=== PATIENT | male | born 1960 | race Caucasian/White ===

== ENCOUNTER 2016-09-30 12:44 | Emergency (ER) | payer BC, OTHER ==
[2016-09-30] MEDS ORDERED: KETOROLAC 30 MG/ML VIAL (J1885) As Ordered ONE (13:51)
[2016-09-30] MEDS ORDERED: METHOCARBAMOL 1,000 MG/10 ML VIAL (J2800) As Ordered ONE (13:51)
--- NOTE | 2016-09-30 14:32 | REP ---
CT CERVICAL SPINE WITHOUT CONTRAST: 09/30/2016 COMPARISON: 08/25/2016, CT and MRI. CLINICAL HISTORY: Trauma. Neck pain. Known chronic degenerative disc disease, prior injury and surgery in 2011. TECHNIQUE: Axial soft-tissue and bone window settings with coronal and sagittal reconstructions provided. FINDINGS: The patient is status post anterior cervical discectomy and fusion with plate and screw fixation from C4 through C6. Incorporation of disc fusion material at C4-5 and C5-6. There is no hardware failure. There is loss of the normal cervical lordosis and this is unchanged. Disc space heights at C2-3 and C3-4 are intact. There is slight narrowing at C6-7. Anterior osteophytes at C6-7. The dens shows normal relationship to the anterior arch and lateral masses of C1 and is intact. Craniocervical junction also intact. At C2-3 there is no central canal stenosis. Uncinate spur on the left without spinal stenosis. At C3-4, there is also mild diffuse disc bulge with slight narrowing of the AP canal diameter to about 9 mm. Disc bulge and uncinate spurring noted bilaterally with the foramina adequate right, borderline left. At C4-5, there is bony hypertrophic change and some mild central canal stenosis. Uncinate spurring and facet arthropathy are noted with the foramina mildly stenotic bilaterally. At C5-6, there is posterior osteophytic spurring and associated disc bulge. This is also contributing to some central canal stenosis which is mild. Neural foramina are marginally adequate despite uncinate spurring. At C6-7, I do not see significant disc bulge. The foramina are adequate. At C7-T1, there is some facet hypertrophic change and mild disc bulge but no definite central canal stenosis. Foramina adequate on the right and marginally adequate on the left. The upper thoracic levels show some degenerative disc changes. Posterior elements show the spinous processes, lamina, pedicles, transverse processes, transverse foramina and facets without fractures. There is hypertrophic facet change at multiple levels. IMPRESSION: 1. Status post anterior cervical discectomy and fusion from C4 through C6 with graft incorporation and solid fusion at those two levels. No hardware failure. 2. Degenerative disc changes at most other levels and there is foraminal encroachment or only marginally adequate foramina at multiple levels from uncinate and facet spurs. All of this unchanged from the previous study. I do not see acute compression deformity, malalignment or destructive lesion. Signed by Jimmie Oswald MD 09/30/2016 05:07 P
--- NOTE | 2016-09-30 14:41 | REP ---
CT LUMBAR SPINE WITHOUT CONTRAST: 09/30/2016 COMPARISON: MRI lumbar spine 07/09/2016, x-ray 02/14/2006. CLINICAL HISTORY: Trauma, back pain. Technique axial images with coronal and sagittal bone reconstructions were provided. FINDINGS: The normal lordosis is slightly reduced. There is disc space narrowing and vacuum phenomenon at L4-5 and L5-S1. The other lumbar levels are intact. There is disc space narrowing and vacuum phenomenon at T12-L1. Anterior osteophytes from T11-12 through L5-S1 greatest at L4-5. There is no compression deformity of destructive lesion. There is a Schmorl's node at the anterior aspect inferior endplate of T12. At T11-12, there is a posterior broad-based disc bulge and small osteophytes causing some degree of central canal stenosis. Mild foramina appear adequate. At T12-L1, also a small disc bulge with some facet arthropathy. AP canal diameter about 11 mm intact and no foraminal encroachment. Intact 11th and 12th posterior ribs. At L1-2, no significant disc bulge or herniation and no spinal or foraminal stenosis. At L2-3, there is mild broad-based disc bulge. Some ligamentum flavum and facet hypertrophy combining to cause some mild central canal stenosis however the foramina are marginally adequate on the right and adequate on the left. At L3-4, there is a broad-based disc bulge and some ligamentum flavum with facet hypertrophy. This combines to cause mild central canal stenosis. Foramina are marginally adequate. At L4-L5, posterior osteophytic ridging and disc bulge with ligamentum flavum and facet hypertrophy noted. This causes spinal stenosis with some lateral recess stenosis. Marginal osteophytes and facet arthritis contribute with disc bulge to the stenosis of left greater than right foramen. At L5-S1, there is broad-based disc bulge and posterior calcification within the disc consistent with hard disc. Cross-sectional area of the canal was adequate. There is foraminal encroachment bilaterally due to combined factors, left greater than right. IMPRESSION: 1. No compression deformity of the vertebral bodies or malalignment. There is facet arthritis at multiple levels and the disc space narrowing at L4-5, L5-S1 and T12-L1 is notable, however, all of these findings are unchanged from the prior study. No acute bony finding. Central canal stenosis at the multiple levels and foraminal encroachment due to combined factors as on previous MRI in June. No new finding. Signed by Jimmie Oswald MD 09/30/2016 05:08 P
--- NOTE | 2016-09-30 15:15 | EDDOCDS ---
Nurse's Notes [facility] Name: Yfn Ramsey Age: 56 yrs Sex: Male : 1960 Arrival Date: 09/30/2016 Time: 12:44 Bed TR7 Private MD: Brian Anaya P. Diagnosis: Contusion of lower back and pelvis;Strain of muscle, fascia and tendon at neck level;Contusion of other part of head Presentation: 09/30 12:56 Presenting complaint: Patient states: slipped and fell at work. Landed on back and jo3 struck head. Suicide/Homicide risk assessment- the patient denies having any suicidal and/or homicidal ideations and does not present with any other emotional, behavioral or mental health complaints. Status: Patient is not a housetrailer servicer or dependent. Transition of care: patient was not received from another setting of care. 12:56 Method Of Arrival: Walkin/Carried/Asstd jo3 13:10 Adult Sepsis Screening: The patient does not have new or worsening altered mentation. ck1 Patient's respiratory rate is less than 22. Systolic blood pressure is greater than 100. Patient has a qSOFA score of 0- Negative Sepsis Screen. 13:10 Acuity: RUFUS Level 3 ck1 Triage Assessment: 12:59 General: Appears uncomfortable. Pain: Pain currently is 9 out of 10 on a pain scale. jo3 HIV screening NA for this visit Offered previously. Neurological: Level of Consciousness is awake, alert, Oriented to person, place, time. Historical: - Allergies: VANCOMYCIN AND DERIVATIVES; - Home Meds: 1. gabapentin 300 mg Oral tab twice a day 2. losartan 25 mg oral tab 1 tab once daily - PMHx: Hypertension; Chronic Back pain; neck pain; - PSHx: Anterior Cervical Discectomy; right knee; left carpal tunnel; - Social history: Smoking status: Patient states former smoker of tobacco. No barriers to communication noted, The patient speaks fluent Turkish, Speaks appropriately for age. - Family history: Not pertinent. - : The pt / caregiver states he / she is not on anticoagulants. Home medication list is obtained from the patient. - Exposure Risk Screening:: None identified. Screenin:17 Screening information is obtained from the patient. Fall risk: No risks identified. mk4 Assistance ADL's: requires no assistance with activities of daily living. Abuse/DV Screen: The patient / caregiver reports he/she is: not in a situation that causes fear, pain or injury. Nutritional screening: No deficits noted. home support is adequate. 15:04 Advance Directives: Currently, there is no health care proxy. There is no active DNR mk4 order. There is no living will. There is no Power of Political Reporter. Advance directive information has not previously been placed in an [facility] medical record. Further advance directive information is declined. Assessment: 13:17 General: Appears uncomfortable. Pain: Location: back of head, neck left hip and mk4 shooting down left leg. Neurological: Level of Consciousness is awake, alert. Neurological: Denies LOC. Respiratory: Airway is patent Respiratory effort is even, unlabored, Respiratory pattern is regular. Derm: Skin is intact, is healthy with good turgor. Musculoskeletal: cervical spine is tender. Circulation, motion, and sensation intact Capillary refill < 3 seconds in left toes No deformity noted. 13:21 General: cervical collar applied for c/o neck pain and heard a "crack". mk4 15:04 General: Appears in no apparent distress, comfortable, Behavior is cooperative. Pain: mk4 Location: left lower back and left leg. Respiratory: Airway is patent Respiratory effort is even, unlabored, Respiratory pattern is regular. 15:07 General: Appears in no apparent distress, comfortable, Behavior is cooperative. Pain: mk4 Pain currently is 4 out of 10 on a pain scale. Neurological: Level of Consciousness is awake, alert. Respiratory: Airway is patent Respiratory effort is even, unlabored, Respiratory pattern is regular. Derm: Skin is intact, is healthy with good turgor. Vital Signs: 12:46 BP 152 / 78 RA Sitting (auto/lg); Pulse 80; Resp 18; Temp 97.6(O); Pulse Ox 94% ; jrd Weight 133.81 kg (R); Height 5 ft. 9 in. (175.26 cm); Pain 9/10; 15:04 BP 149 / 84; Pulse 72; Resp 18; Temp 98; Pulse Ox 98% on R/A; Pain 3/10; mk4 12:46 Body Mass Index 43.56 (133.81 kg, 175.26 cm) [facility] Vitals: 12:46 Log In Time: September 30, 2016 at 12:30. jrd ED Course: 12:46 Patient visited by Fede Dobbins PCA. jrd 12:46 Brian Anaya is Private Physician. jrd 12:46 Patient moved to Waiting jrd 12:48 Patient visited by Fede Dobbins PCA. jrd 12:48 Patient moved to Pre RCE jrd 13:00 Patient visited by Lisa Gastelum RN. jo3 13:08 Patient moved to Triage 1 ct3 13:10 Patient moved to I mk4 13:10 Triage Initiated ck1 13:17 The patient / caregiver is instructed regarding the plan of care and ED course. mk4 13:22 Chava Potter PA is PHCP. btw 13:22 Marci Paul MD is Attending Physician. btw 13:22 Patient visited by Chava Potter PA. btw 14:01 Patient visited by Lindsey Chavarria RN. mk4 14:30 Lila cervical collar applied and checked by provider. mk4 14:49 Brian Anaya is Referral Physician. btw 14:56 CT Spine,Cervical W/o Contrast Returned. EDMS 14:56 CT Spine, Lumbar W/o Contrast Returned. EDMS 15:04 Patient moved to TR7 mk4 15:04 No IV's were initiated during this patient's visit. No procedures done that require mk4 assistance. Administered Medications: 14:02 Drug: ketorolac 30 mg [ketorolac 30 mg/mL (1 mL) injection solution (1 mL)] Route: IM; mk4 Site: right gluteus; 15:08 Follow up: Response: Pain is decreased mk4 14:02 Drug: Robaxin 250 mg [Robaxin 100 mg/mL injection solution (2.5 mL)] Route: IM; Site: mk4 right gluteus; 15:08 Follow up: Response: Pain is decreased mk4 Order Results: Radiology Order: CT Spine,Cervical W/o Contrast Test: CT Spine,Cervical W/o Contrast REASON FOR EXAMINATION: Trauma; CT CERVICAL SPINE WITHOUT CONTRAST: 09/30/2016; ; COMPARISON: 08/25/2016, CT and MRI.; ; CLINICAL HISTORY: Trauma. Neck pain. Known chronic degenerative disc disease,; prior injury and surgery in 2011.; ; TECHNIQUE: Axial soft-tissue and bone window settings with coronal and sagittal; reconstructions provided.; ; FINDINGS: The patient is status post anterior cervical discectomy and fusion; with plate and screw fixation from C4 through C6. Incorporation of disc fusion; material at C4-5 and C5-6. There is no hardware failure. There is loss of the; normal cervical lordosis and this is unchanged. Disc space heights at C2-3 and; C3-4 are intact. There is slight narrowing at C6-7. Anterior osteophytes at; C6-7. The dens shows normal relationship to the anterior arch and lateral masses; of C1 and is intact. Craniocervical junction also intact. At C2-3 there is no; central canal stenosis. Uncinate spur on the left without spinal stenosis.; ; At C3-4, there is also mild diffuse disc bulge with slight narrowing of the AP; canal diameter to about 9 mm. Disc bulge and uncinate spurring noted bilaterally; with the foramina adequate right, borderline left.; ; At C4-5, there is bony hypertrophic change and some mild central canal stenosis.; Uncinate spurring and facet arthropathy are noted with the foramina mildly; stenotic bilaterally.; ; At C5-6, there is posterior osteophytic spurring and associated disc bulge. This; is also contributing to some central canal stenosis which is mild. Neural; foramina are marginally adequate despite uncinate spurring.; ; At C6-7, I do not see significant disc bulge. The foramina are adequate.; ; At C7-T1, there is some facet hypertrophic change and mild disc bulge but no; definite central canal stenosis. Foramina adequate on the right and marginally; adequate on the left.; ; The upper thoracic levels show some degenerative disc changes. Posterior; elements show the spinous processes, lamina, pedicles, transverse processes,; transverse foramina and facets without fractures. There is hypertrophic facet; change at multiple levels.; ; IMPRESSION:; 1. Status post anterior cervical discectomy and fusion from C4 through C6 with; graft incorporation and solid fusion at those two levels. No hardware failure.; ; 2. Degenerative disc changes at most other levels and there is foraminal; encroachment or only marginally adequate foramina at multiple levels from; uncinate and facet spurs. All of this unchanged from the previous study. I do; not see acute compression deformity, malalignment or destructive lesion.; ; ; ; ; Unreviewed; Radiology Order: CT Spine, Lumbar W/o Contrast Test: CT Spine, Lumbar W/o Contrast REASON FOR EXAMINATION: Trauma; CT LUMBAR SPINE WITHOUT CONTRAST: 09/30/2016; ; COMPARISON: MRI lumbar spine 07/09/2016, x-ray 02/14/2006.; ; CLINICAL HISTORY: Trauma, back pain.; ; Technique axial images with coronal and sagittal bone reconstructions were; provided.; ; FINDINGS: The normal lordosis is slightly reduced. There is disc space; narrowing and vacuum phenomenon at L4-5 and L5-S1. The other lumbar levels are; intact. There is disc space narrowing and vacuum phenomenon at T12-L1. Anterior; osteophytes from T11-12 through L5-S1 greatest at L4-5. There is no compression; deformity of destructive lesion. There is a Schmorl's node at the anterior; aspect inferior endplate of T12.; ; At T11-12, there is a posterior broad-based disc bulge and small osteophytes; causing some degree of central canal stenosis. Mild foramina appear adequate.; ; At T12-L1, also a small disc bulge with some facet arthropathy. AP canal diameter; about 11 mm intact and no foraminal encroachment. Intact 11th and 12th posterior; ribs.; ; At L1-2, no significant disc bulge or herniation and no spinal or foraminal; stenosis.; ; At L2-3, there is mild broad-based disc bulge. Some ligamentum flavum and facet; hypertrophy combining to cause some mild central canal stenosis however the; foramina are marginally adequate on the right and adequate on the left.; ; At L3-4, there is a broad-based disc bulge and some ligamentum flavum with facet; hypertrophy. This combines to cause mild central canal stenosis. Foramina are; marginally adequate.; ; At L4-L5, posterior osteophytic ridging and disc bulge with ligamentum flavum; and facet hypertrophy noted. This causes spinal stenosis with some lateral; recess stenosis. Marginal osteophytes and facet arthritis contribute with disc; bulge to the stenosis of left greater than right foramen.; ; At L5-S1, there is broad-based disc bulge and posterior calcification within the; disc consistent with hard disc. Cross-sectional area of the canal was adequate.; There is foraminal encroachment bilaterally due to combined factors, left greater; than right.; ; IMPRESSION:; No compression deformity of the vertebral bodies or malalignment. There is facet; arthritis at multiple levels and the disc space narrowing at L4-5, L5-S1 and; T12-L1 is notable, however, all of these findings are unchanged from the prior; study. No acute bony finding. Central canal stenosis at the multiple levels and; foraminal encroachment due to combined factors as on previous MRI in June.; No new finding.; ; ; ; Unreviewed; Outcome: 14:50 Discharge ordered by Provider. btw 15:14 Patient left the ED. mk4 Signatures: Dispatcher [employer] EDMS Fern BrowneRN RN ck1 Lisa Gastelum RN RN jo3 Chava Potter PA PA btw Jayla Bundy, HOME AND SCHOOL VISITOR HOME AND SCHOOL VISITOR ct3 Lindsey Chavarria RN RN mk4 Fede Dobbins, [facility] HOME AND SCHOOL VISITOR jrd MTDD
--- NOTE | 2016-09-30 15:15 | EDDOCDS ---
Physician Documentation [facility] Name: Yfn Ramsey Age: 56 yrs Sex: Male : 1960 Arrival Date: 09/30/2016 Time: 12:44 Bed TR7 Private MD: Brian Anaya P. Disposition: 09/30/16 14:50 Discharged to Home/Self Care. Impression: Contusion of lower back and pelvis, Strain of muscle, fascia and tendon at neck level, Contusion of other part of head. - Condition is Stable. - Discharge Instructions: Contusion, Soft Tissue Injury of the Neck, Facial or Scalp Contusion, [id number]. - Prescriptions for Diclofenac Sodium 75 mg Oral Tablet, Delayed Release (E.C.) - take 1 tablet by ORAL route 2 times per day; 30 tablet. Robaxin- 750 750 mg Oral Tablet - take 1 tablet by ORAL route every 6 hours As needed; 40 tablet. - Medication Reconciliation, Local Pharmacy Hours form. - Follow up: Brian Anaya; When: Call to arrange an appointment; Reason: Further diagnostic work-up, Recheck today's complaints, Continuance of care. - Problem is new. - Symptoms are unchanged. Historical: - Allergies: VANCOMYCIN AND DERIVATIVES; - Home Meds: 1. gabapentin 300 mg Oral tab twice a day 2. losartan 25 mg oral tab 1 tab once daily - PMHx: Hypertension; Chronic Back pain; neck pain; - PSHx: Anterior Cervical Discectomy; right knee; left carpal tunnel; - Social history: Smoking status: Patient states former smoker of tobacco. No barriers to communication noted, The patient speaks fluent Eritrean, Speaks appropriately for age. - Family history: Not pertinent. - : The pt / caregiver states he / she is not on anticoagulants. Home medication list is obtained from the patient. - Exposure Risk Screening:: None identified. Vital Signs: 09/30 12:46 BP 152 / 78 RA Sitting (auto/lg); Pulse 80; Resp 18; Temp 97.6(O); Pulse Ox 94% ; jrd Weight 133.81 kg / 295 lbs (R); Height 5 ft. 9 in. (175.26 cm); Pain 9/10; 15:04 BP 149 / 84; Pulse 72; Resp 18; Temp 98; Pulse Ox 98% on R/A; Pain 3/10; mk4 12:46 Body Mass Index 43.56 (133.81 kg, 175.26 cm) jrd MDM: 13:30 ketorolac 30 mg IM once ordered. btw 13:30 Robaxin 250 mg IM once ordered. btw 13:32 CT Spine,Cervical W/o Contrast Ordered. EDMS 13:32 CT Spine, Lumbar W/o Contrast Ordered. EDMS Administered Medications: 14:02 Drug: ketorolac 30 mg [ketorolac 30 mg/mL (1 mL) injection solution (1 mL)] Route: IM; mk4 Site: right gluteus; 15:08 Follow up: Response: Pain is decreased mk4 14:02 Drug: Robaxin 250 mg [Robaxin 100 mg/mL injection solution (2.5 mL)] Route: IM; Site: mk4 right gluteus; 15:08 Follow up: Response: Pain is decreased mk4 Signatures: Dispatcher [employer] EDLisa Soler RN RN jo3 Chava Potter PA PA btLindsey Ventura RN RN mk4 MTDD
--- NOTE | 2016-10-02 16:15 | EDDOCDS ---
Physician Documentation [facility] Name: Yfn Ramsey Age: 56 yrs Sex: Male : 1960 Arrival Date: 09/30/2016 Time: 12:44 Bed TR7 Private MD: Brian Anaya P. Disposition: 09/30/16 14:50 Discharged to Home/Self Care. Impression: Contusion of lower back and pelvis, Strain of muscle, fascia and tendon at neck level, Contusion of other part of head. - Condition is Stable. - Discharge Instructions: Contusion, Soft Tissue Injury of the Neck, Facial or Scalp Contusion, [id number]. - Prescriptions for Diclofenac Sodium 75 mg Oral Tablet, Delayed Release (E.C.) - take 1 tablet by ORAL route 2 times per day; 30 tablet. Robaxin- 750 750 mg Oral Tablet - take 1 tablet by ORAL route every 6 hours As needed; 40 tablet. - Medication Reconciliation, Local Pharmacy Hours form. - Follow up: Brian Anaya; When: Call to arrange an appointment; Reason: Further diagnostic work-up, Recheck today's complaints, Continuance of care. - Problem is new. - Symptoms are unchanged. Historical: - Allergies: VANCOMYCIN AND DERIVATIVES; - Home Meds: 1. gabapentin 300 mg Oral tab twice a day 2. losartan 25 mg oral tab 1 tab once daily - PMHx: Hypertension; Chronic Back pain; neck pain; - PSHx: Anterior Cervical Discectomy; right knee; left carpal tunnel; - Social history: Smoking status: Patient states former smoker of tobacco. No barriers to communication noted, The patient speaks fluent Hungarian, Speaks appropriately for age. - Family history: Not pertinent. - : The pt / caregiver states he / she is not on anticoagulants. Home medication list is obtained from the patient. - Exposure Risk Screening:: None identified. Vital Signs: 09/30 12:46 BP 152 / 78 RA Sitting (auto/lg); Pulse 80; Resp 18; Temp 97.6(O); Pulse Ox 94% ; jrd Weight 133.81 kg / 295 lbs (R); Height 5 ft. 9 in. (175.26 cm); Pain 9/10; 15:04 BP 149 / 84; Pulse 72; Resp 18; Temp 98; Pulse Ox 98% on R/A; Pain 3/10; mk4 12:46 Body Mass Index 43.56 (133.81 kg, 175.26 cm) jrd MDM: 13:30 ketorolac 30 mg IM once ordered. btw 13:30 Robaxin 250 mg IM once ordered. btw 13:32 CT Spine,Cervical W/o Contrast Ordered. EDMS 13:32 CT Spine, Lumbar W/o Contrast Ordered. EDMS 15:24 [facility] Payment Agreement was scanned into [employer] and attached to record. jp5 15:24 Financial registration complete. jp5 10/01 10:11 T-Sheet-- Draft Copy was scanned into [employer] and attached to record. gb Administered Medications: 09/30 14:02 Drug: ketorolac 30 mg [ketorolac 30 mg/mL (1 mL) injection solution (1 mL)] Route: IM; mk4 Site: right gluteus; 15:08 Follow up: Response: Pain is decreased mk4 14:02 Drug: Robaxin 250 mg [Robaxin 100 mg/mL injection solution (2.5 mL)] Route: IM; Site: mk4 right gluteus; 15:08 Follow up: Response: Pain is decreased mk4 Signatures: Dispatcher [employer] EDMS Dyana Jeronimo, Lisa Tompkins,RN RN Chava Vences PA PA btw Lindsey Chavarria RN RN mk4 Reza Antonio jp5 The chart was reviewed and I authenticate all verbal orders and agree with the evaluation and treatment provided.Attachments: 15:24 [facility] Payment Agreement jp5 10/01 10:11 T-Sheet-- Draft Copy gb Chart Complete MTDD
--- NOTE | 2016-10-02 16:15 | EDDOCDS ---
Physician Documentation [facility] Name: Yfn Ramsey Age: 56 yrs Sex: Male : 1960 Arrival Date: 09/30/2016 Time: 12:44 Bed TR7 Private MD: Brian Anaya P. Disposition: 09/30/16 14:50 Discharged to Home/Self Care. Impression: Contusion of lower back and pelvis, Strain of muscle, fascia and tendon at neck level, Contusion of other part of head. - Condition is Stable. - Discharge Instructions: Contusion, Soft Tissue Injury of the Neck, Facial or Scalp Contusion, Xwlt-oc-Mgoc. - Prescriptions for Diclofenac Sodium 75 mg Oral Tablet, Delayed Release (E.C.) - take 1 tablet by ORAL route 2 times per day; 30 tablet. Robaxin- 750 750 mg Oral Tablet - take 1 tablet by ORAL route every 6 hours As needed; 40 tablet. - Medication Reconciliation, Local Pharmacy Hours form. - Follow up: Brian Anaya; When: Call to arrange an appointment; Reason: Further diagnostic work-up, Recheck today's complaints, Continuance of care. - Problem is new. - Symptoms are unchanged. Historical: - Allergies: VANCOMYCIN AND DERIVATIVES; - Home Meds: 1. gabapentin 300 mg Oral tab twice a day 2. losartan 25 mg oral tab 1 tab once daily - PMHx: Hypertension; Chronic Back pain; neck pain; - PSHx: Anterior Cervical Discectomy; right knee; left carpal tunnel; - Social history: Smoking status: Patient states former smoker of tobacco. No barriers to communication noted, The patient speaks fluent Rwandan, Speaks appropriately for age. - Family history: Not pertinent. - : The pt / caregiver states he / she is not on anticoagulants. Home medication list is obtained from the patient. - Exposure Risk Screening:: None identified. Vital Signs: 09/30 12:46 BP 152 / 78 RA Sitting (auto/lg); Pulse 80; Resp 18; Temp 97.6(O); Pulse Ox 94% ; jrd Weight 133.81 kg / 295 lbs (R); Height 5 ft. 9 in. (175.26 cm); Pain 9/10; 15:04 BP 149 / 84; Pulse 72; Resp 18; Temp 98; Pulse Ox 98% on R/A; Pain 3/10; mk4 12:46 Body Mass Index 43.56 (133.81 kg, 175.26 cm) jrd MDM: 13:30 ketorolac 30 mg IM once ordered. btw 13:30 Robaxin 250 mg IM once ordered. btw 13:32 CT Spine,Cervical W/o Contrast Ordered. EDMS 13:32 CT Spine, Lumbar W/o Contrast Ordered. EDMS 15:24 [place] [place] Agreement was scanned into [employer] and attached to record. jp5 15:24 Financial registration complete. jp5 10/01 10:11 T-Sheet-- Draft Copy was scanned into [employer] and attached to record. gb Administered Medications: 09/30 14:02 Drug: ketorolac 30 mg [ketorolac 30 mg/mL (1 mL) injection solution (1 mL)] Route: IM; mk4 Site: right gluteus; 15:08 Follow up: Response: Pain is decreased mk4 14:02 Drug: Robaxin 250 mg [Robaxin 100 mg/mL injection solution (2.5 mL)] Route: IM; Site: mk4 right gluteus; 15:08 Follow up: Response: Pain is decreased mk4 Signatures: Dispatcher [employer] EDMS Dyana Jeronimo, Lisa Tompkins,RN RN Chava Vences PA PA btw Lindsey Chavarria RN RN mk4 Reza Antonio jp5 The chart was reviewed and I authenticate all verbal orders and agree with the evaluation and treatment provided.Attachments: 15:24 [facility] Payment Agreement jp5 10/01 10:11 T-Sheet-- Draft Copy gb Chart Complete MTDD
--- NOTE | 2016-10-02 16:15 | EDDOCDS ---
Nurse's Notes [facility] Name: Yfn Ramsey Age: 56 yrs Sex: Male : 1960 Arrival Date: 09/30/2016 Time: 12:44 Bed TR7 Private MD: Brian Anaya P. Diagnosis: Contusion of lower back and pelvis;Strain of muscle, fascia and tendon at neck level;Contusion of other part of head Presentation: 09/30 12:56 Presenting complaint: Patient states: slipped and fell at work. Landed on back and jo3 struck head. Suicide/Homicide risk assessment- the patient denies having any suicidal and/or homicidal ideations and does not present with any other emotional, behavioral or mental health complaints. Status: Patient is not a field service tech or dependent. Transition of care: patient was not received from another setting of care. 12:56 Method Of Arrival: Walkin/Carried/Asstd jo3 13:10 Adult Sepsis Screening: The patient does not have new or worsening altered mentation. ck1 Patient's respiratory rate is less than 22. Systolic blood pressure is greater than 100. Patient has a qSOFA score of 0- Negative Sepsis Screen. 13:10 Acuity: RUFUS Level 3 ck1 Triage Assessment: 12:59 General: Appears uncomfortable. Pain: Pain currently is 9 out of 10 on a pain scale. jo3 HIV screening NA for this visit Offered previously. Neurological: Level of Consciousness is awake, alert, Oriented to person, place, time. Historical: - Allergies: VANCOMYCIN AND DERIVATIVES; - Home Meds: 1. gabapentin 300 mg Oral tab twice a day 2. losartan 25 mg oral tab 1 tab once daily - PMHx: Hypertension; Chronic Back pain; neck pain; - PSHx: Anterior Cervical Discectomy; right knee; left carpal tunnel; - Social history: Smoking status: Patient states former smoker of tobacco. No barriers to communication noted, The patient speaks fluent Kinyarwanda, Speaks appropriately for age. - Family history: Not pertinent. - : The pt / caregiver states he / she is not on anticoagulants. Home medication list is obtained from the patient. - Exposure Risk Screening:: None identified. Screenin:17 Screening information is obtained from the patient. Fall risk: No risks identified. mk4 Assistance ADL's: requires no assistance with activities of daily living. Abuse/DV Screen: The patient / caregiver reports he/she is: not in a situation that causes fear, pain or injury. Nutritional screening: No deficits noted. home support is adequate. 15:04 Advance Directives: Currently, there is no health care proxy. There is no active DNR mk4 order. There is no living will. There is no Power of Psychology Intern. Advance directive information has not previously been placed in an [facility] medical record. Further advance directive information is declined. Assessment: 13:17 General: Appears uncomfortable. Pain: Location: back of head, neck left hip and mk4 shooting down left leg. Neurological: Level of Consciousness is awake, alert. Neurological: Denies LOC. Respiratory: Airway is patent Respiratory effort is even, unlabored, Respiratory pattern is regular. Derm: Skin is intact, is healthy with good turgor. Musculoskeletal: cervical spine is tender. Circulation, motion, and sensation intact Capillary refill < 3 seconds in left toes No deformity noted. 13:21 General: cervical collar applied for c/o neck pain and heard a "crack". mk4 15:04 General: Appears in no apparent distress, comfortable, Behavior is cooperative. Pain: mk4 Location: left lower back and left leg. Respiratory: Airway is patent Respiratory effort is even, unlabored, Respiratory pattern is regular. 15:07 General: Appears in no apparent distress, comfortable, Behavior is cooperative. Pain: mk4 Pain currently is 4 out of 10 on a pain scale. Neurological: Level of Consciousness is awake, alert. Respiratory: Airway is patent Respiratory effort is even, unlabored, Respiratory pattern is regular. Derm: Skin is intact, is healthy with good turgor. Vital Signs: 12:46 BP 152 / 78 RA Sitting (auto/lg); Pulse 80; Resp 18; Temp 97.6(O); Pulse Ox 94% ; jrd Weight 133.81 kg (R); Height 5 ft. 9 in. (175.26 cm); Pain 9/10; 15:04 BP 149 / 84; Pulse 72; Resp 18; Temp 98; Pulse Ox 98% on R/A; Pain 3/10; mk4 12:46 Body Mass Index 43.56 (133.81 kg, 175.26 cm) [facility] Vitals: 12:46 Log In Time: September 30, 2016 at 12:30. jrd ED Course: 12:46 Patient visited by Fede Dobbins PCA. jrd 12:46 Brian Anaya is Private Physician. jrd 12:46 Patient moved to Waiting jrd 12:48 Patient visited by Fede Dobbins PCA. jrd 12:48 Patient moved to Pre RCE jrd 13:00 Patient visited by Lisa Gastelum RN. jo3 13:08 Patient moved to Triage 1 ct3 13:10 Patient moved to I6 / 28 mk4 13:10 Triage Initiated ck1 13:17 The patient / caregiver is instructed regarding the plan of care and ED course. mk4 13:22 Chava Potter PA is PHCP. btw 13:22 Marci Paul MD is Attending Physician. btw 13:22 Patient visited by Chava Potter PA. btw 14:01 Patient visited by Lindsey Chavarria RN. mk4 14:30 Lila cervical collar applied and checked by provider. mk4 14:49 Brian Anaya is Referral Physician. btw 14:56 CT Spine,Cervical W/o Contrast Returned. EDMS 14:56 CT Spine, Lumbar W/o Contrast Returned. EDMS 15:04 Patient moved to TR7 mk4 15:04 No IV's were initiated during this patient's visit. No procedures done that require mk4 assistance. 15:24 Patient name changed from Yfn\\S\\D\\S\\Doldo\\S\\ to Yfn\\S\\James\\S\\Doldo. EDMS 15:24 [place] [place] was scanned into [employer] and attached to record. jp5 02 10:11 T-Sheet-- Draft Copy was scanned into [employer] and attached to record. gb Administered Medications: 09/30 14:02 Drug: ketorolac 30 mg [ketorolac 30 mg/mL (1 mL) injection solution (1 mL)] Route: IM; mk4 Site: right gluteus; 15:08 Follow up: Response: Pain is decreased mk4 14:02 Drug: Robaxin 250 mg [Robaxin 100 mg/mL injection solution (2.5 mL)] Route: IM; Site: mk4 right gluteus; 15:08 Follow up: Response: Pain is decreased mk4 Order Results: Radiology Order: CT Spine,Cervical W/o Contrast Test: CT Spine,Cervical W/o Contrast REASON FOR EXAMINATION: Trauma; CT CERVICAL SPINE WITHOUT CONTRAST: 09/30/2016; ; COMPARISON: 08/25/2016, CT and MRI.; ; CLINICAL HISTORY: Trauma. Neck pain. Known chronic degenerative disc disease,; prior injury and surgery in 2011.; ; TECHNIQUE: Axial soft-tissue and bone window settings with coronal and sagittal; reconstructions provided.; ; FINDINGS: The patient is status post anterior cervical discectomy and fusion; with plate and screw fixation from C4 through C6. Incorporation of disc fusion; material at C4-5 and C5-6. There is no hardware failure. There is loss of the; normal cervical lordosis and this is unchanged. Disc space heights at C2-3 and; C3-4 are intact. There is slight narrowing at C6-7. Anterior osteophytes at; C6-7. The dens shows normal relationship to the anterior arch and lateral masses; of C1 and is intact. Craniocervical junction also intact. At C2-3 there is no; central canal stenosis. Uncinate spur on the left without spinal stenosis.; ; At C3-4, there is also mild diffuse disc bulge with slight narrowing of the AP; canal diameter to about 9 mm. Disc bulge and uncinate spurring noted bilaterally; with the foramina adequate right, borderline left.; ; At C4-5, there is bony hypertrophic change and some mild central canal stenosis.; Uncinate spurring and facet arthropathy are noted with the foramina mildly; stenotic bilaterally.; ; At C5-6, there is posterior osteophytic spurring and associated disc bulge. This; is also contributing to some central canal stenosis which is mild. Neural; foramina are marginally adequate despite uncinate spurring.; ; At C6-7, I do not see significant disc bulge. The foramina are adequate.; ; At C7-T1, there is some facet hypertrophic change and mild disc bulge but no; definite central canal stenosis. Foramina adequate on the right and marginally; adequate on the left.; ; The upper thoracic levels show some degenerative disc changes. Posterior; elements show the spinous processes, lamina, pedicles, transverse processes,; transverse foramina and facets without fractures. There is hypertrophic facet; change at multiple levels.; ; IMPRESSION:; ; 1. Status post anterior cervical discectomy and fusion from C4 through C6 with; graft incorporation and solid fusion at those two levels. No hardware failure.; ; 2. Degenerative disc changes at most other levels and there is foraminal; encroachment or only marginally adequate foramina at multiple levels from; uncinate and facet spurs. All of this unchanged from the previous study. I do; not see acute compression deformity, malalignment or destructive lesion.; ; ; Signed by; Jimmie Oswald MD 09/30/2016 05:07 P; Radiology Order: CT Spine, Lumbar W/o Contrast Test: CT Spine, Lumbar W/o Contrast REASON FOR EXAMINATION: Trauma; CT LUMBAR SPINE WITHOUT CONTRAST: 09/30/2016; ; COMPARISON: MRI lumbar spine 07/09/2016, x-ray 02/14/2006.; ; CLINICAL HISTORY: Trauma, back pain.; ; Technique axial images with coronal and sagittal bone reconstructions were; provided.; ; FINDINGS: The normal lordosis is slightly reduced. There is disc space; narrowing and vacuum phenomenon at L4-5 and L5-S1. The other lumbar levels are; intact. There is disc space narrowing and vacuum phenomenon at T12-L1. Anterior; osteophytes from T11-12 through L5-S1 greatest at L4-5. There is no compression; deformity of destructive lesion. There is a Schmorl's node at the anterior; aspect inferior endplate of T12.; ; At T11-12, there is a posterior broad-based disc bulge and small osteophytes; causing some degree of central canal stenosis. Mild foramina appear adequate.; ; At T12-L1, also a small disc bulge with some facet arthropathy. AP canal diameter; about 11 mm intact and no foraminal encroachment. Intact 11th and 12th posterior; ribs.; ; At L1-2, no significant disc bulge or herniation and no spinal or foraminal; stenosis.; ; At L2-3, there is mild broad-based disc bulge. Some ligamentum flavum and facet; hypertrophy combining to cause some mild central canal stenosis however the; foramina are marginally adequate on the right and adequate on the left.; ; At L3-4, there is a broad-based disc bulge and some ligamentum flavum with facet; hypertrophy. This combines to cause mild central canal stenosis. Foramina are; marginally adequate.; ; At L4-L5, posterior osteophytic ridging and disc bulge with ligamentum flavum; and facet hypertrophy noted. This causes spinal stenosis with some lateral; recess stenosis. Marginal osteophytes and facet arthritis contribute with disc; bulge to the stenosis of left greater than right foramen.; ; At L5-S1, there is broad-based disc bulge and posterior calcification within the; disc consistent with hard disc. Cross-sectional area of the canal was adequate.; There is foraminal encroachment bilaterally due to combined factors, left greater; than right.; ; IMPRESSION:; ; 1. No compression deformity of the vertebral bodies or malalignment. There is; facet arthritis at multiple levels and the disc space narrowing at L4-5, L5-S1; and T12-L1 is notable, however, all of these findings are unchanged from the; prior study. No acute bony finding. Central canal stenosis at the multiple; levels and foraminal encroachment due to combined factors as on previous MRI in; June. No new finding.; ; ; Signed by; Jimmie Oswald MD 09/30/2016 05:08 P; Outcome: 14:50 Discharge ordered by Provider. btw 15:14 Patient left the ED. mk4 15:15 Discharge Assessment: Patient awake, alert and oriented x 3. No cognitive and/or mk4 functional deficits noted. Patient verbalized understanding of disposition instructions. Patient awake and alert. Discharge Assessment: patient administered narcotics - no. The following High Risk Discharge criteria are identified: None. Condition: stable. CT Study completed. Property sent home with patient. Signatures: Dispatcher [employer] EDFL Dyana Jeronimo, Reg Reg Fern BrowneRN RN ck1 Lisa GastelumRN RN [id number] Chava Potter PA PA btw Jayla Bundy, ACID PAINTER ACID PAINTER ct3 Lindsey Chavarria RN RN mk4 Fede Dobbins, ACID PAINTER ACID PAINTER d Reza Antonio jp5 Chart Complete MTDD
== END 2016-09-30 15:14 | disposition home or self-care (01) ==
LOC: M ED 12:44
DX: S16.1XXA Strain of muscle, fascia and tendon at neck level, initial encounter (principal); S00.93XA Contusion of unspecified part of head, initial encounter; S30.0XXA Contusion of lower back and pelvis, initial encounter; W00.9XXA Unspecified fall due to ice and snow, initial encounter; Y92.9 Unspecified place or not applicable; Y93.9 Activity, unspecified; Y99.0 Civilian activity done for income or pay; I10 Essential (primary) hypertension; G89.29 Other chronic pain; M54.2 Cervicalgia; Z87.891 Personal history of nicotine dependence; Z79.899 Other long term (current) drug therapy; Z88.8 Allergy status to other drugs, medicaments and biological substances
CPT/HCPCS: 72125; 72131; 96372; 99284; J1885; J2800

== ENCOUNTER → 2016-10-07 | Outpatient (REF) | payer BC, OTHER ==
[2016-10-07 19:19] LABS: ALBUMIN 4.2 GM/DL (3.2-5.2); ALBUMIN/GLOBULIN RATIO 1.45 (1.00-1.93); ALKALINE PHOSPHATASE 68 U/L (45-117); ALT/SGPT 50 U/L (12-78); ANION GAP 8 MEQ/L (8-16); AST/SGOT 28 U/L (15-37); BILIRUBIN,TOTAL 0.9 MG/DL (0.2-1.0); BLOOD UREA NITROGEN 13 MG/DL (7-18); CALCIUM LEVEL 8.8 MG/DL (8.5-10.1); CARBON DIOXIDE LEVEL 30 MEQ/L (21-32); CHLORIDE LEVEL 104 MEQ/L (98-107); CREATININE FOR GFR 1.06 MG/DL (0.70-1.30); GLOMERULAR FILTRATION RATE > 60.0 (>56); GLUCOSE, FASTING 71 MG/DL (70-105); POTASSIUM SERUM 4.4 MEQ/L (3.5-5.1); SODIUM LEVEL 142 MEQ/L (136-145); TOTAL PROTEIN 7.1 GM/DL (6.4-8.2)
[2016-10-07 19:33] LABS: ADD MORPHOLOGY? YES; BASO % 0.4 % (0.0-1.0); EOS # 0.1 K/mm3 (0.0-0.50); EOS % 2.4 % (0.0-3.0); LARGE UNSTAINED CELL # 0.2 K/mm3 (0.0-0.4); LARGE UNSTAINED CELL % 3.6 % (0.0-4.0); LYMPH # 1.9 K/mm3 (1.5-4.5); LYMPH % 31.8 % (24.0-44.0); MEAN CORPUSCULAR HEMOGLOBIN 18.8 pg (27.0-33.0); MEAN CORPUSCULAR HGB CONC 29.7 g/dl (32.0-36.5); MEAN CORPUSCULAR VOLUME 63.3 fl (80.0-96.0); MONO # 0.5 K/mm3 (0.0-0.8); MONO % 7.6 % (0.0-5.0); NEUTROPHILS # 3.3 K/mm3 (1.8-7.7); NEUTROPHILS % 54.2 % (36.0-66.0); PLATELET COUNT, AUTOMATED 205 k/mm3 (150-450); RED CELL DISTRIBUTION WIDTH 15.1 % (11.5-14.5); WHITE BLOOD COUNT 6.1 K/mm3 (4.0-10.0)
[2016-10-07 21:03] LABS: ANISOCYTOSIS 1+; MICROCYTOSIS 4+
[2016-10-07 21:04] LABS: HYPOCHROMASIA 2+
== END ==
LOC: M LABDRAW1 17:16
PROVIDERS: ATTEND Emergency Medicine
DX: D56.3 Thalassemia minor (principal); E66.9 Obesity, unspecified; I10 Essential (primary) hypertension; R97.20 Elevated prostate specific antigen [PSA]

== ENCOUNTER → 2019-07-05 | Outpatient (REF) | payer BC, OTHER ==
[2019-07-05 12:44] LABS: BASO # 0.1 10^3/uL (0.0-0.2); BASO % 0.9 % (0.0-1.0); EOS # 0.2 10^3/uL (0.0-0.5); EOS % 2.6 % (0.0-3.0); HEMOGLOBIN 12.4 g/dl (13.5-17.5); LYMPH # 1.5 10^3/uL (1.5-5.0); LYMPH % 22.6 % (24.0-44.0); MEAN CORPUSCULAR HEMOGLOBIN 18.5 pg (27.0-33.0); MEAN CORPUSCULAR HGB CONC 28.8 g/dl (32.0-36.5); MEAN CORPUSCULAR VOLUME 64.3 fl (80.0-96.0); MONO # 0.7 10^3/uL (0.0-0.8); NEUTROPHILS # 4.1 10^3/uL (1.5-8.5); NEUTROPHILS % 61.7 % (36.0-66.0); PLATELET COUNT, AUTOMATED 180 10^3/uL (150-450); RED BLOOD COUNT 6.69 10^6/uL (4.30-6.10); WHITE BLOOD COUNT 6.6 10^3/uL (4.0-10.0)
[2019-07-05 13:11] LABS: ALBUMIN 3.9 GM/DL (3.2-5.2); ALT/SGPT 41 U/L (12-78); BILIRUBIN,TOTAL 0.5 MG/DL (0.2-1.0); BLOOD UREA NITROGEN 14 MG/DL (7-18); CALCIUM LEVEL 8.7 MG/DL (8.5-10.1); CARBON DIOXIDE LEVEL 35 MEQ/L (21-32); CHLORIDE LEVEL 104 MEQ/L (98-107); CHOLESTEROL LEVEL 157 MG/DL (<200); CHOLESTEROL RISK RATIO 4.243 (<5); CREATININE FOR GFR 0.99 MG/DL (0.70-1.30); GLOMERULAR FILTRATION RATE > 60.0 (>56); GLUCOSE, FASTING 90 MG/DL (70-100); HDL CHOLESTEROL 37 MG/DL (>40); LDL CHOLESTEROL 106 MG/DL (<100); NON-HDL-C 120 MG/DL; POTASSIUM SERUM 5.1 MEQ/L (3.5-5.1); SODIUM LEVEL 141 MEQ/L (136-145); TOTAL PROTEIN 6.7 GM/DL (6.4-8.2); TRIGLYCERIDES LEVEL 70 MG/DL (<150)
== END ==
LOC: M LABDRAW1 11:58
PROVIDERS: ATTEND Physician Assistant
DX: R60.0 Localized edema (principal); R97.20 Elevated prostate specific antigen [PSA]; D56.3 Thalassemia minor; I10 Essential (primary) hypertension
CPT/HCPCS: 36415; 80053; 80061; 85025; G0103

== ENCOUNTER → 2019-07-20 | Outpatient (REF) | payer BC, OTHER ==
[2019-07-20 12:57] LABS: BASO % 0.6 % (0.0-1.0); EOS # 0.2 10^3/uL (0.0-0.5); EOS % 2.2 % (0.0-3.0); HEMOGLOBIN 12.4 g/dl (13.5-17.5); LYMPH # 1.6 10^3/uL (1.5-5.0); LYMPH % 21.7 % (24.0-44.0); MEAN CORPUSCULAR HEMOGLOBIN 18.5 pg (27.0-33.0); MEAN CORPUSCULAR HGB CONC 28.8 g/dl (32.0-36.5); MEAN CORPUSCULAR VOLUME 64.2 fl (80.0-96.0); MONO # 0.7 10^3/uL (0.0-0.8); MONO % 9.8 % (0.0-5.0); NEUTROPHILS # 4.6 10^3/uL (1.5-8.5); NEUTROPHILS % 64.6 % (36.0-66.0); PLATELET COUNT, AUTOMATED 165 10^3/uL (150-450); WHITE BLOOD COUNT 7.1 10^3/uL (4.0-10.0)
[2019-07-20 13:04] LABS: PERCENT SATURATION 27.7 % (19.7-50.0)
[2019-07-20 13:10] LABS: FOLATE 11.9 NG/ML
== END ==
LOC: M LABDRAW1 11:37
PROVIDERS: ATTEND Physician Assistant
DX: D56.3 Thalassemia minor (principal)

== ENCOUNTER → 2019-10-05 | Outpatient (REF) | payer BC, OTHER ==
[2019-10-05 17:01] LABS: BLOOD UREA NITROGEN 29 MG/DL (7-18); CALCIUM LEVEL 8.4 MG/DL (8.5-10.1); CARBON DIOXIDE LEVEL 33 MEQ/L (21-32); CHLORIDE LEVEL 105 MEQ/L (98-107); GLOMERULAR FILTRATION RATE > 60.0 (>56); GLUCOSE, FASTING 91 MG/DL (70-100); POTASSIUM SERUM 4.3 MEQ/L (3.5-5.1); SODIUM LEVEL 142 MEQ/L (136-145)
== END ==
LOC: M LABDRAW1 15:43
PROVIDERS: ATTEND Physician Assistant
DX: R60.0 Localized edema (principal)

== ENCOUNTER → 2020-05-16 | Outpatient (CLI) | payer BC, OTHER ==
[2020-05-16 13:03] LABS: BASO # 0.1 10^3/uL (0.0-0.2); BASO % 0.7 % (0.0-1.0); EOS # 0.1 10^3/uL (0.0-0.5); HEMATOCRIT 44.2 % (42.0-52.0); HEMOGLOBIN 12.8 g/dl (13.5-17.5); LYMPH # 2.2 10^3/uL (1.5-5.0); LYMPH % 31.2 % (24.0-44.0); MEAN CORPUSCULAR HEMOGLOBIN 18.7 pg (27.0-33.0); MEAN CORPUSCULAR VOLUME 64.7 fl (80.0-96.0); MONO # 0.7 10^3/uL (0.0-0.8); MONO % 10.5 % (0.0-5.0); NEUTROPHILS # 3.7 10^3/uL (1.5-8.5); PLATELET COUNT, AUTOMATED 164 10^3/uL (150-450); RED BLOOD COUNT 6.83 10^6/uL (4.30-6.10); WHITE BLOOD COUNT 6.9 10^3/uL (4.0-10.0)
[2020-05-16 13:20] LABS: ALBUMIN 4.2 GM/DL (3.2-5.2); ALT/SGPT 44 U/L (12-78); BILIRUBIN,TOTAL 0.4 MG/DL (0.2-1.0); BLOOD UREA NITROGEN 22 MG/DL (7-18); CALCIUM LEVEL 8.9 MG/DL (8.8-10.2); CARBON DIOXIDE LEVEL 32 MEQ/L (21-32); CHLORIDE LEVEL 106 MEQ/L (98-107); CHOLESTEROL LEVEL 175 MG/DL (<200); CHOLESTEROL RISK RATIO 3.645 (<5); CREATININE FOR GFR 0.99 MG/DL (0.70-1.30); FOLATE 13.7 NG/ML (>5.4); FREE T4 0.86 NG/DL (0.76-1.46); GLOMERULAR FILTRATION RATE > 60.0 (>49); GLUCOSE, FASTING 107 MG/DL (70-100); HDL CHOLESTEROL 48 MG/DL (>40); LDL CHOLESTEROL 109 MG/DL (<100); NON-HDL-C 127 MG/DL; NT-PRO BNP 100 PG/ML (<125); POTASSIUM SERUM 4.9 MEQ/L (3.5-5.1); SODIUM LEVEL 140 MEQ/L (136-145); TOTAL 25(OH) VITAMIN D 36.4 NG/ML (30.0-100.0); TOTAL PROTEIN 7.2 GM/DL (6.4-8.2); TRIGLYCERIDES LEVEL 88 MG/DL (<150); VITAMIN B12 LEVEL 532 PG/ML (247-911)
[2020-05-16 14:51] LABS: HEMOGLOBIN A1c 5.9 %
[2020-05-17 16:08] LABS: Lyme Disease IgG/IgM Antibodie <0.91 ISR (0.00-0.90); Lyme Disease IgM Ab Quantitati <0.80 index (0.00-0.79)
== END ==
LOC: M PLALAB 08:48
PROVIDERS: ATTEND Nurse Practitioner Family
DX: R53.83 Other fatigue (principal); R60.0 Localized edema

== ENCOUNTER → 2021-04-17 | Outpatient (CLI) | payer OTHER ==
--- NOTE | 2021-04-17 12:06 | REP ---
INDICATION: PAIN IN RT KNEE. COMPARISON: None. TECHNIQUE: Multiple sequences obtained in the axial, coronal and sagittal planes. FINDINGS: Menisci: There is a tear of the posterior horn of the medial meniscus. Cruciate ligaments: Intact. Collateral ligaments: Intact. Extensor mechanism/patellar retinacula: Intact. Cartilage: There is moderate diffuse chondromalacia of the medial femoral condyle and tibial plateau. Mild global chondromalacia is seen elsewhere. Bone marrow: Normal signal, no edema or occult fracture. Joint fluid: There is a small joint effusion. Popliteal region: No cyst. IMPRESSION: Tear posterior horn medial meniscus. Moderate chondromalacia of the medial compartment. Otherwise mild global chondromalacia. Small joint effusion. <Electronically signed by Ronni Davis > 04/17/21 [id number]
== END ==
LOC: M PLAIMG 08:08
PROVIDERS: ATTEND Orthopaedic Surgery
DX: R93.7 Abnormal findings on diagnostic imaging of other parts of musculoskeletal system (principal); M25.561 Pain in right knee

== ENCOUNTER → 2021-04-17 | Outpatient (CLI) | payer BC ==
[2021-04-17 15:23] LABS: BASO # 0.1 10^3/uL (0.0-0.2); BASO % 0.8 % (0.0-1.0); EOS # 0.1 10^3/uL (0.0-0.5); EOS % 1.8 % (0.0-3.0); HEMATOCRIT 40.4 % (42.0-52.0); HEMOGLOBIN 12.1 g/dl (13.5-17.5); LYMPH # 1.9 10^3/uL (1.5-5.0); LYMPH % 24.1 % (24.0-44.0); MEAN CORPUSCULAR HEMOGLOBIN 18.8 pg (27.0-33.0); MEAN CORPUSCULAR VOLUME 62.9 fl (80.0-96.0); MONO # 0.8 10^3/uL (0.0-0.8); MONO % 9.8 % (2.0-8.0); NEUTROPHILS # 4.9 10^3/uL (1.5-8.5); NEUTROPHILS % 62.7 % (36.0-66.0); PLATELET COUNT, AUTOMATED 170 10^3/uL (150-450); RED BLOOD COUNT 6.42 10^6/uL (4.30-6.10); WHITE BLOOD COUNT 7.8 10^3/uL (4.0-10.0)
[2021-04-17 15:55] LABS: ALT/SGPT 48 U/L (12-78); BILIRUBIN,TOTAL 0.7 MG/DL (0.2-1.0); BLOOD UREA NITROGEN 15 MG/DL (7-18); CALCIUM LEVEL 8.9 MG/DL (8.8-10.2); CARBON DIOXIDE LEVEL 32 MEQ/L (21-32); CHLORIDE LEVEL 106 MEQ/L (98-107); CHOLESTEROL LEVEL 179 MG/DL (<200); CHOLESTEROL RISK RATIO 4.972 (<5); CREATININE FOR GFR 1.02 MG/DL (0.70-1.30); GLOMERULAR FILTRATION RATE > 60.0 (>49); GLUCOSE, FASTING 95 MG/DL (70-100); HDL CHOLESTEROL 36 MG/DL (>40); LDL CHOLESTEROL 111 MG/DL (<100); NON-HDL-C 143 MG/DL; POTASSIUM SERUM 4.7 MEQ/L (3.5-5.1); SODIUM LEVEL 142 MEQ/L (136-145); TOTAL PROTEIN 6.7 GM/DL (6.4-8.2); TRIGLYCERIDES LEVEL 162 MG/DL (<150)
== END ==
LOC: M PLALAB 12:18
PROVIDERS: ATTEND Nurse Practitioner Family
DX: D56.3 Thalassemia minor (principal); I10 Essential (primary) hypertension

== ENCOUNTER → 2023-04-16 | Outpatient (CLI) | payer BC ==
[2023-04-16 09:51] LABS: BASO % 0.6 % (0.0-1.0); EOS # 0.2 10^3/uL (0.0-0.5); EOS % 2.8 % (0.0-3.0); HEMATOCRIT 39.2 % (42.0-52.0); HEMOGLOBIN 11.8 g/dl (13.5-17.5); LYMPH # 1.7 10^3/uL (1.5-5.0); LYMPH % 25.7 % (24.0-44.0); MEAN CORPUSCULAR HEMOGLOBIN 18.8 pg (27.0-33.0); MEAN CORPUSCULAR HGB CONC 30.1 g/dl (32.0-36.5); MEAN CORPUSCULAR VOLUME 62.3 fl (80.0-96.0); MONO # 0.8 10^3/uL (0.0-0.8); MONO % 12.4 % (2.0-8.0); NEUTROPHILS # 3.7 10^3/uL (1.5-8.5); NEUTROPHILS % 57.7 % (36.0-66.0); PLATELET COUNT, AUTOMATED 150 10^3/uL (150-450); RED BLOOD COUNT 6.29 10^6/uL (4.30-6.10); WHITE BLOOD COUNT 6.5 10^3/uL (4.0-10.0)
[2023-04-16 10:24] LABS: ALBUMIN 3.8 G/DL (3.2-5.2); ALKALINE PHOSPHATASE 72 U/L (46-116); ALT/SGPT 30 U/L (7.0-40); AST/SGOT 18 U/L (<34); BILIRUBIN,TOTAL 0.6 MG/DL (0.3-1.2); BLOOD UREA NITROGEN 20 MG/DL (9-23); CALCIUM LEVEL 8.7 MG/DL (8.3-10.6); CARBON DIOXIDE LEVEL 30 MMOL/L (20-31); CHLORIDE LEVEL 105 MMOL/L (98-107); CHOLESTEROL LEVEL 156 MG/DL (<200); CHOLESTEROL RISK RATIO 4.67 (<5); CREATININE FOR GFR 1.03 MG/DL (0.70-1.30); GLOMERULAR FILTRATION RATE > 60.0 (>49); GLUCOSE, FASTING 100 MG/DL (74-106); HDL CHOLESTEROL 33.4 MG/DL (>40); LDL CHOLESTEROL 110.4 MG/DL (<100); NON-HDL-C 122.6 MG/DL; POTASSIUM SERUM 4.6 MMOL/L (3.5-5.1); SODIUM LEVEL 141 MMOL/L (136-145); TOTAL PROTEIN 6.2 G/DL (5.7-8.2); TRIGLYCERIDES LEVEL 61 MG/DL (<150)
== END ==
LOC: M LAB 08:40
PROVIDERS: ATTEND Nurse Practitioner Family
DX: I10 Essential (primary) hypertension (principal)